=== PATIENT | male | born 1960 | race African-American/Black ===

== ENCOUNTER 2022-04-07 18:00 | Emergency (ER) | payer OTHER ==
[2022-04-07 18:12] VITALS: RESP 18; TEMP 98.3; BMI 31.8
[2022-04-07] MEDS ORDERED: ACETAMINOPHEN 325 MG TABLET (FP) PO ONE (19:58)
[2022-04-07 20:10] LABS: BASO % 0.9 % (0-2.0); EOS % 2.4 % (0-4.5); HEMATOCRIT 38.5 % (35.4-49); HEMOGLOBIN 12.7 GM/dL (11.7-16.9); INR 1.17 (0.83-1.09); LYMPH % 20.3 % (8-40); MCH 27.3 pg (25.7-33.7); MEAN CELL VOLUME 82.8 fl (80-96); MEAN PLT VOLUME 7.7 fl (7.5-11.1); MONO % 6.7 % (3.8-10.2); NEUT % 69.7 % (42.8-82.8); PLATELET COUNT 370 10^3/uL (134-434); PROTHROMBIN TIME (PATIENT) 13.5 SEC (9.7-13.0); RBC 4.65 M/mm3 (4.00-5.60); RDW 16.6 % (11.9-15.9)
[2022-04-07 20:14] LABS: ACTIVATED PTT 30.8 SECONDS (25.2-36.5)
[2022-04-07] MEDS ORDERED: ACETAMINOPHEN 325 MG TABLET (FP) ONE (20:23)
[2022-04-07 20:25] VITALS: BP 140/77; PULSE 66
[2022-04-07 20:26] LABS: CALCIUM 8.8 mg/dL (8.5-10.1)
[2022-04-07 20:30] LABS: CREATININE 1.1 mg/dL (0.55-1.3)
[2022-04-07 20:31] LABS: TOT PROT 7.5 g/dl (6.4-8.2)
[2022-04-07 20:32] LABS: BILIRUBIN,TOTAL 0.3 mg/dL (0.2-1)
== END 2022-04-07 22:01 | disposition home or self-care (01) ==
LOC: JER 18:00
DX: R51.9 Headache, unspecified (principal); I10 Essential (primary) hypertension
CPT/HCPCS: 0241U-QW; 36415; 80053; 82550; 82553; 84443; 84484; 85025; 85610; 85730; 93005; 93010; 99284-25